=== PATIENT | female | born 1985 | race Two or more races ===

== ENCOUNTER 2023-06-11 20:20 | Emergency (ER) | payer OTHER ==
[~2023-06-11] VITALS: Ht 170.2 cm; Wt 117.9 kg
[2023-06-11] MEDS ORDERED: REGLAN5 MG/5 ML (20:45)
[2023-06-11] MEDS ORDERED: ZOFRAN8 MG (20:45)
[2023-06-11] MEDS ORDERED: PROTONIX40 MG (20:46)
[2023-06-11] MEDS ORDERED: METFORMIN HCL500 M3 (20:46)
[2023-06-11 23:10] LABS: HEMATOCRIT 41.1 % (36.0-45.00); HEMOGLOBIN 14.3 g/dL (12.0-15.00); MEAN CELL VOLUME 81.3 fL (80.00-100.00); MEAN CORPUSCULAR HEMOGLOBIN 28.3 pg (27.00-32.0); MEAN CORPUSCULAR HGB CONC 34.7 g/dl (32.0-36.0); PLATELET COUNT 360 K/uL (150-450); RED BLOOD COUNT 5.05 M/uL (4.00-6.00); RED CELL DISTRIBUTION WIDTH 14.1 % (11.5-14.5)
[2023-06-11 23:29] LABS: ALBUMIN 3.6 gm/dL (3.4-5.0); BILIRUBIN TOTAL 0.57 mg/dL (0.3-1.2); CREATININE SERUM 0.6 mg/dL (0.55-1.02); GFR 111.29; GLOBULINA 4.1 G/DL (2.4-3.5); POTASSIUM 3.49 mEq/L (3.5-5.1); TOTAL PROTEIN 7.7 gm/dL (6.4-8.2)
[2023-06-12 13:39] LABS: PH,URINE 6.5 (5.0-8.0); URINE APPEARANCE Clear; URINE BILIRRUBIN Negative (NEGATIVE); URINE BLOOD Negative; URINE COLOR Yellow; URINE LEUKOCYTE Negative; URINE NITRATE Negative
[2023-06-12 13:42] LABS: URINE BACTERIA 481.2 uL (0.0-1933); URINE EPITHELIAL CELLS 13.1 uL (0.0-38.8); URINE RBC 3.4 uL (0.0-20.8); URINE WBC 13.4 uL (0.0-23.2)
[2023-06-12 13:46] LABS: URINE GLUCOSE >=1000 MG/DL (NEGATIVE); URINE PROTEIN 100 (NEGATIVE)
== END 2023-06-12 14:31 | disposition home or self-care (01) ==
LOC: ER 20:20
PROVIDERS: General Practice
DX: K31.84 Gastroparesis (principal); Z20.822 Contact with and (suspected) exposure to COVID-19; E11.9 Type 2 diabetes mellitus without complications; Z79.84 Long term (current) use of oral hypoglycemic drugs